=== PATIENT | male | born 1980 ===

== ENCOUNTER 2018-03-11 07:11 | Emergency (ER) | payer SELFPAY ==
[2018-03-11 07:25] VITALS: BP 127/82
--- NOTE | 2018-03-11 07:55 | UC ---
Shoulder Pain HPI - HPI Summary HPI Summary: The patient is a 37-year-old male with a 2 day history of severe right shoulder pain and decreased range of motion. For a number of years he has had some mild chronic intermittent right shoulder pain. He denies any recent falls or injury. He is right hand dominant. Today the pain shoots down to the elbow and he has some mild numbness and tingling in his hand. - History of Current Complaint Chief Complaint: UCUpperExtremity Stated Complaint: RT SHOULDER PAIN Time Seen by Provider: 03/11/18 07:18 Hx Obtained From: Patient Onset/Duration: Sudden Onset Timing: Constant Severity Initially: Moderate Severity Currently: Mild Pain Intensity: 2 - at rest Pain Scale Used: 0-10 Numeric Character: Aching, Throbbing Aggravating Factor(s): Movement, Abduction Alleviating Factor(s): Rest Associated Signs And Symptoms: Positive: Numbness/Tingling Related History: Dominant Hand Right Torso: 1 - tender here - Allergies/Home Medications Allergies/Adverse Reactions: Allergies Allergy/AdvReac Type Severity Reaction Status Date / Time No Known Allergies Allergy Verified 03/11/18 07:20 Home Medications: Home Medications Lidocaine/Menthol [Icy Hot Lidocaine Patch P 4-1 %] 1 pad TOPICAL SEE INSTRUCTIONS PRN 03/11/18 [History Confirmed 03/11/18] PMH/Surg Hx/FS Hx/Imm Hx Previously Healthy: Yes - Surgical History Surgical History: Yes Surgery Procedure, Year, and Place: Left Radial Head Fracture s/p fall, 2013 - Family History Known Family History: Positive: Hypertension - Social History Alcohol Use: Occasionally Substance Use Type: None Smoking Status (MU): Heavy Every Day Tobacco Smoker Amount Used/How Often: 1/2 can per day Length of Time of Smoking/Using Tobacco: Since Age 15 (1 PPD x 15 Years) Review of Systems Constitutional: Negative Skin: Negative Eyes: Negative ENT: Negative Respiratory: Negative Cardiovascular: Negative Gastrointestinal: Negative Genitourinary: Negative Motor: Negative Neurovascular: Negative Musculoskeletal: Arthralgia Neurological: Negative Psychological: Negative Is Patient Immunocompromised?: No All Other Systems Reviewed And Are Negative: Yes Physical Exam Triage Information Reviewed: Yes Appearance: Well-Appearing, No Pain Distress, Well-Nourished Vital Signs: Initial Vital Signs Temp 98.5 F 03/11/18 07:17 Pulse 74 03/11/18 07:17 Resp 16 03/11/18 07:17 BP 127/82 03/11/18 07:17 Pulse Ox 99 03/11/18 07:17 Vital Signs Reviewed: Yes Eyes: Positive: Conjunctiva Clear ENT: Positive: Hearing grossly normal. Negative: Nasal congestion, Nasal drainage, Trismus, Muffled voice, Hoarse voice Neck: Positive: Supple, Nontender, No Lymphadenopathy Respiratory: Positive: Lungs clear, Normal breath sounds, No respiratory distress, No accessory muscle use Cardiovascular: Positive: RRR, No Murmur Musculoskeletal: Positive: ROM Limited @ - able to abduct to 45 degrees Neurological: Positive: Alert Psychological Exam: Normal Skin Exam: Normal Shoulder Course/Dx - Differential Dx/Diagnosis Provider Diagnoses: right shoulder tendonitis Discharge - Sign-Out/Discharge Documenting (check all that apply): Patient Departure - Discharge Plan Condition: Stable Disposition: HOME Patient Education Materials: Tendinitis (ED) Forms: *Work Release Referrals: Aldair POZO,Mariluz Krueger [Primary Care Provider] - 1 Week (if not better) Additional Instructions: heat massage aleve 2 twice daily with food - Billing Disposition and Condition Condition: STABLE Disposition: Home
--- NOTE | 2018-03-11 08:17 | RAD ---
HISTORY: right shoulder pain/dec ROM, no trauma COMPARISONS: None VIEWS: 4, Frontal internal rotation, external rotation, outlet, and axillary views of the right shoulder FINDINGS: BONE DENSITY: Normal. BONES: There is no displaced fracture. 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 SOFT TISSUES: Unremarkable. OTHER FINDINGS: None. IMPRESSION: NO ACUTE OSSEOUS INJURY. IF SYMPTOMS PERSIST, RECOMMEND REPEAT IMAGING.
== END 2018-03-11 08:22 | disposition home or self-care (01) ==
LOC: UCCORT 07:11
DX: M75.91 Shoulder lesion, unspecified, right shoulder (principal); F17.220 Nicotine dependence, chewing tobacco, uncomplicated
CPT/HCPCS: 99201; G0463